=== PATIENT | female | born 1945 | race Caucasian/White ===

== ENCOUNTER 2018-06-21 22:37 | Inpatient (IN) | payer MEDICARE, BC ==
[~2018-06-21] VITALS: Ht 165.1 cm; Wt 106.8 kg
[2018-06-21] MEDS: VANCOMYCIN 1 GM in IV D5W 250 ML IV ONE (04:45)
--- NOTE | 2018-06-21 22:42 | NUR ---
Pt put on BiPaP, setting 15/5, Rate-20, Fio2 100%
--- NOTE | 2018-06-21 22:42 | NUR ---
Pt BIBRA for SOB, given albuterol and cpap enroute with minimal relief. Pt presenting with dyspnea, pale, hypotensive, tachycardic. Pt alert and follows commands. Pt put on monitor. Md at bedside for evaluation. RT and RN at bedside.
--- NOTE | 2018-06-21 22:45 | NUR ---
Dr. Bowser told to hold off on cabrera and urine, pt tachypnic.
--- NOTE | 2018-06-21 22:55 | NUR ---
Hearing Dog Trainer at bedside, labs drawn and sent to lab.
[2018-06-21] MEDS ORDERED: IV NS 0.9% 500 ML BAG IV ONE (23:00)
[2018-06-21 23:14] LABS: BASOPHILS # (AUTO) 0.2 /CMM (0.0-0.2); BASOPHILS % (AUTO) 0.3 % (0.0-2.0); EOSINOPHILS % (AUTO) 2.4 % (0.0-6.0); HEMATOCRIT 49 % (33-45); HEMOGLOBIN 15.7 g/dL (11.5-14.8); LYMPHOCYTES # (AUTO) 1.4 /CMM (0.8-4.8); LYMPHOCYTES % (AUTO) 2.3 % (20.0-44.0); MEAN CORPUSCULAR HGB CONC 32 g/dl (31.0-36.0); MEAN CORPUSCULAR VOLUME 108 fL (82-100); MONOCYTES # (AUTO) 0.3 /CMM (0.1-1.30); MONOCYTES % (AUTO) 0.5 % (2.0-12.0); NEUTROPHILS # (AUTO) 58.5 /CMM (1.8-8.9); NEUTROPHILS % (AUTO) 94.5 % (43.0-81.0); PLATELET COUNT (AUTO) 188 /CMM (150-450); RED BLOOD CELL COUNT(AUTO) 4.48 MIL/uL (4.0-5.2)
[2018-06-21] MEDS ORDERED: AMIODARONE 150 MG/3 ML VIAL IV ONE ×2 (23:15→23:40)
--- NOTE | 2018-06-21 23:20 | NUR ---
Pt placed on bear-hugger, setting medium.
--- NOTE | 2018-06-21 23:24 | NUR ---
Xray at bedside.
[2018-06-21 23:27] LABS: MAGNESIUM 1.8 mg/dL (1.8-2.4)
[2018-06-21] MEDS ORDERED: AMIODARONE 150 MG in IV D5W 100 ML IV ONE (23:30)
[2018-06-21] MEDS ORDERED: MEROPENEM 1,000 MG in IV NS 0.9% 100 ML IV ONE (23:30)
--- NOTE | 2018-06-21 23:30 | NUR ---
2320 amiodarone 150mg ivpb started;hr 170, 2323 hr 157, 2327 hr 140, 2330 hr 140
--- NOTE | 2018-06-21 23:45 | NUR ---
Branch Operations Coordinator at bedside for labs.
[2018-06-21 23:50] LABS: THYROID STIMULATING HORMONE 9.445 uIU/mL (0.358-3.74)
[2018-06-22] VITALS (31 sets, daily range): BP systolic 58–139; BP diastolic 30–73
[2018-06-22 00:02] LABS: BAND % (MANUAL) 7 % (0.0-5.0); LYMPHOCYTES % (MANUAL) 2 % (16-48); NEUTROPHILS % (MANUAL) 91 (42-76)
[2018-06-22] MEDS ORDERED: AMIODARONE 150 MG/3 ML VIAL IV ONE ×2 (00:06)
[2018-06-22 00:10] LABS: ABG BASE EXCESS -18.3 mmol/L; ABG OXYGEN SATURATION 89.4 % (92.0-98.5); ABG PCO2 26.4 mmHg (35.0-45.0); ABG PH 7.149 (7.350-7.450); ABG PO2 74.6 mmHg (75.0-100.0); COHb 0.8 % (0.5-1.5); MetHb 0.7 % (0.0-1.5); O2Hb 88.1 % (94.0-97.0)
[2018-06-22] MEDS ORDERED: AMIODARONE 900 MG in IV D5W 482 ML IV STA (00:11)
[2018-06-22 00:15] LABS: B-TYPE NATRIURETIC PEPTIDE 9354 PG/ML (0-125)
[2018-06-22 00:20] LABS: CALCIUM, SERUM 9.2 mg/dL (8.5-10.1); CARBON DIOXIDE 13 mmol/L (21-32); CHLORIDE 95 mmol/L (98-107); CREATININE 3.8 mg/dL (0.6-1.3); GLUCOSE 102 mg/dL (74-106); POTASSIUM 5.1 mmol/L (3.5-5.1); SODIUM SERUM 129 mmol/L (136-145); UREA NITROGEN, BLOOD 63 mg/dL (7-18)
[2018-06-22 00:26] LABS: ALANINE AMINOTRANSFERASE 17 U/L (12-78); ALBUMIN 2.3 g/dL (3.4-5.0); ALKALINE PHOSPHATASE 200 U/L (46-116); ASPARTATE AMINOTRANSFERASE 82 U/L (15-37); BILIRUBIN,TOTAL 5.4 mg/dL (0.2-1.0); TOTAL PROTEIN, SERUM 7.3 g/dL (6.4-8.2)
[2018-06-22 00:27] LABS: BILIRUBIN,DIRECT 4.2 mg/dL (0.0-0.2)
--- NOTE | 2018-06-22 00:30 | NUR ---
Note undone in ED - 06/22/18 at 0304 by HUMZA Pt not tolerating Bipap well, keeps pulling and wanting to take off, saying its too loud. Pt AAOx4. Pt Saturation staying in the 80s. Addendum: 06/22/18 at 0257 by HUMZA Amendment undone in ED - 06/22/18 at 0304 by HUMZA made aware.
[2018-06-22] MEDS ORDERED: AZITHROMYCIN 500 MG in IV D5W 250 ML IV STA (00:38)
--- NOTE | 2018-06-22 00:50 | NUR ---
Pt taken to CT with RN.
[2018-06-22] MEDS ORDERED: IV NS 0.9% 500 ML BAG IV ONE (01:00)
--- NOTE | 2018-06-22 01:00 | NUR ---
PT returned from CT, Pt desaturated to low 50s. Pt back on the Bipap. MD aware. No further orders recieved.
[2018-06-22] MEDS ORDERED: LISI-603 PO (01:13)
[2018-06-22] MEDS ORDERED: LEVO100T9 PO (01:13)
[2018-06-22] MEDS ORDERED: MEROPENEM 1 G VIAL IV ONE (01:14)
--- NOTE | 2018-06-22 01:30 | NUR ---
Pt not tolerating Bipap well, keeps adjusting the mask. Pt AAOx4, O2 saturations keeping in the 80s. at bedside.
--- NOTE | 2018-06-22 01:30 | NUR ---
Multiple Rns unable to obtain a second line in Pt. made aware.
--- NOTE | 2018-06-22 02:15 | NUR ---
RT at bedside for ABG.
--- NOTE | 2018-06-22 02:22 | NUR ---
Dimension Quarry Supervisor at bedside.
--- NOTE | 2018-06-22 03:01 | NUR ---
3 RT at bedside unable to obtain 2nd ABG. made aware.
[2018-06-22 03:08] LABS: ABG BASE EXCESS -19.4 mmol/L; ABG OXYGEN SATURATION 91.6 % (92.0-98.5); ABG PCO2 26.7 mmHg (35.0-45.0); ABG PH 7.118 (7.350-7.450); AaDO2 606.3 mmHg; COHb 0.4 % (0.5-1.5); MetHb 0.7 % (0.0-1.5); O2Hb 90.6 % (94.0-97.0); SITE, ABG Left Brachial
--- NOTE | 2018-06-22 03:36 | NUR ---
PT VOMITTED AND SUCTIONING IN PROGRESS BY DR CORONA. DARK BROWN EMESIS NOTED.
--- NOTE | 2018-06-22 03:36 | NUR ---
PT BEING INTUBATED BY DR. CORONA. RT X 3, ED DB2 DBA, JULIET RN, KENZIE RN/CHG, ALIS DB2 DBA AT THE BEDSIDE. TIME OUT DONE AND PT MEDICATED WITH 20MG ETOMIDATE AND 80 MG ROCC VIA 18G RAC.
--- NOTE | 2018-06-22 03:37 | NUR ---
PT INTUBATED. 23 @ THE LIP AND 7.5 ETT.
--- NOTE | 2018-06-22 03:38 | NUR ---
SUCTIONING IN PROGRESS.
--- NOTE | 2018-06-22 03:39 | NUR ---
BAGGING IN PROGRESS. + COLOR CHANGE, BILATERAL LUNGS AUSCULTATED BY DR CORONA.
--- NOTE | 2018-06-22 03:42 | NUR ---
16F NGT STARTED IN L NARE. 70CM
--- NOTE | 2018-06-22 03:42 | NUR ---
Ashley hammer in [facility] - 06/22/18 at 0400 by AYSHA 16F BIJANT STARTED IN Ally SCOTT 70CM
--- NOTE | 2018-06-22 03:42 | NUR ---
PT IS ON A VENT WITH THE FOLLOWING SETTINGS: AC 20, 500TV, FIO2 100%, PEEP 5
--- NOTE | 2018-06-22 03:44 | NUR ---
Ashley hammer in [facility] - 06/22/18 at 0401 by AYSHA 16F BIJANT STARTED IN Ally SCOTT 70CM
--- NOTE | 2018-06-22 04:07 | NUR ---
ATROPINE GIVEN IVP BY ALPESH CHUNG RAC 18G.
[2018-06-22] MEDS ORDERED: ATROPINE SULFATE INJ 1 MG/ML VIAL ONE (04:09)
[2018-06-22] MEDS ORDERED: NOREPINEPHRINE 4 MG/4 ML AMPUL IV ONE (04:09)
--- NOTE | 2018-06-22 04:12 | NUR ---
2ND DOSE OF ATROPINE GIVEN IVP VIA 18G RAC BY ALPESH CHUNG
--- NOTE | 2018-06-22 04:13 | NUR ---
CXR IN PROGRESS AT THE BEDSIDE.
--- NOTE | 2018-06-22 04:14 | NUR ---
HELD LEVOFED DRIP. PT'S BP IS 142/55, HR 69, O2 SAT 88% ON VENT.
--- NOTE | 2018-06-22 04:15 | NUR ---
CENTRAL LINE INSERTION IN PROGRESS AT THE BEDSIDE BY DR. CORONA UNDER STERILE CONDITIONS.
[2018-06-22] MEDS ORDERED: Z GUARD REMEDY 2 OZ OINT TP PRN (04:30)
[2018-06-22] MEDS ORDERED: ALBUTEROL FS 2.5 MG/3 ML VIAL.NEB NEB PRN (04:30)
[2018-06-22] MEDS ORDERED: IPRATROPIUM NEB FS 0.5 MG/2.5 ML AMPUL.NEB NEB PRN (04:30)
[2018-06-22] MEDS ORDERED: ONDANSETRON HCL/PF 4 MG/2 ML VIAL IVP PRN (04:30)
[2018-06-22] MEDS ORDERED: ACETAMINOPHEN 650 MG/SUPP.RECT RC PRN (04:30)
--- NOTE | 2018-06-22 04:35 | NUR ---
TRIPLE LUMEN CENTRAL LINE INSERTED IN RT IJ BY DR. CORONA UNDER STERILE CONDITIONS.
[2018-06-22] MEDS ORDERED: VANCOMYCIN 1 GM VIAL ONE (04:41)
[2018-06-22] MEDS: VANCOMYCIN 1 GM in IV D5W 250 ML IV ONE (04:45)
[2018-06-22] MEDS ORDERED: IV D5/ 0.9% NACL 1,000 ML IV PRN (05:00)
[2018-06-22] MEDS ORDERED: DOPamine 400MG/D5W 250ML RTU 250 ML IV ONE (05:09)
--- NOTE | 2018-06-22 05:10 | NUR ---
Noted Pt bradycardic in the 30s, ER MD at bedside. No palpable pulse, CPR started. 1 Epi given at 510.
--- NOTE | 2018-06-22 05:12 | NUR ---
Palpable pulse noted, HR remained in the 30s. CPR stopped, Dopamine drip started.
--- NOTE | 2018-06-22 05:15 | NUR ---
Ashley hammer in ED - 06/22/18 at 0543 by HUMZA 2 AMPs of D50 given to PT.
--- NOTE | 2018-06-22 05:15 | NUR ---
2 AMPs of D50 given to PT.
--- NOTE | 2018-06-22 05:15 | NUR ---
BS-37. er md made aware with orders received, 2 AMPs of D50 given per er md order
--- NOTE | 2018-06-22 05:15 | NUR ---
Ashley hammer in [facility] - 06/22/18 at 0544 by HUMZA PT blood sugar 37.
[2018-06-22] MEDS ORDERED: DEXTROSE 50%-WATER 50 ML DISP.SYRIN ONE (05:19)
[2018-06-22 05:42] LABS: ALANINE AMINOTRANSFERASE 22 U/L (12-78); ALBUMIN 1.9 g/dL (3.4-5.0); ALKALINE PHOSPHATASE 180 U/L (46-116); ASPARTATE AMINOTRANSFERASE 107 U/L (15-37); BILIRUBIN,TOTAL 4.6 mg/dL (0.2-1.0); CALCIUM, SERUM 8.6 mg/dL (8.5-10.1); CARBON DIOXIDE 11 mmol/L (21-32); CHLORIDE 98 mmol/L (98-107); CREATININE 4.1 mg/dL (0.6-1.3); POTASSIUM 4.7 mmol/L (3.5-5.1); SODIUM SERUM 131 mmol/L (136-145); TOTAL PROTEIN, SERUM 6.1 g/dL (6.4-8.2); UREA NITROGEN, BLOOD 68 mg/dL (7-18)
[2018-06-22 05:43] LABS: GLUCOSE 50 mg/dL (74-106); PHOSPHORUS 8.3 mg/dL (2.5-4.9)
[2018-06-22 05:55] LABS: ABG BASE EXCESS -30.2 mmol/L; ABG OXYGEN SATURATION 85.1 % (92.0-98.5); ABG PCO2 78.9 mmHg (35.0-45.0); ABG PH 6.637 (7.350-7.450); AaDO2 542.1 mmHg; MetHb 0.9 % (0.0-1.5); O2Hb 84.3 % (94.0-97.0); SITE, ABG Left Brachial
[2018-06-22 05:57] LABS: BASOPHILS # (AUTO) 0.1 /CMM (0.0-0.2); BASOPHILS % (AUTO) 0.1 % (0.0-2.0); HEMATOCRIT 44 % (33-45); HEMOGLOBIN 13.4 g/dL (11.5-14.8); LYMPHOCYTES % (AUTO) 3.6 % (20.0-44.0); MEAN CORPUSCULAR HGB CONC 31 g/dl (31.0-36.0); MEAN CORPUSCULAR VOLUME 115 fL (82-100); MONOCYTES # (AUTO) 0.4 /CMM (0.1-1.30); MONOCYTES % (AUTO) 0.8 % (2.0-12.0); NEUTROPHILS # (AUTO) 51.8 /CMM (1.8-8.9); NEUTROPHILS % (AUTO) 93.5 % (43.0-81.0); PLATELET COUNT (AUTO) 110 /CMM (150-450); RED BLOOD CELL COUNT(AUTO) 3.77 MIL/uL (4.0-5.2)
--- NOTE | 2018-06-22 05:58 | NUR ---
RN NOTES 05:30 AM - ADMITTED PATIENT FROM ER ORALLY INTUBATED ETT 7.5, 26 CM @ LIP CONNECTED TO VENT SETTING AC 20 TV 500 FIO2 100% PEEP 5. NON RESPONSIVE TO PAIN. COLD CLAMMY, PURPLISH EXTREMITIES. TELE MONITOR REVEALS VENTRICULAR BRADYCARDIA 45, PUPIL +5 NON REACTIVE TO LIGHT. RIGHT AND LEFT WEAK PEDAL PULSES PRESENT. INITIAL VS 139/54 HR 50 RESP 14 TEMP 97.6 . IV SITE ON RIGHT INTERNAL JUGULAR RECEIVED WITH DOPAMINE @ 20 MCK/KG/MIN AND VANCOMYCIN 1 GRM FROM ER. PT IS HEMODYNAMICALLY UNSTABLE TO MOVE. WILL CLOSELY MONITOR. 06:10 AM - REPORT TO DR HANLEY REGARDING PATIENT RECENT ABG RESULT OF Ph 6.637 PCO2 78.9, PO2 92 HCO3 8.2 , AND RECENT LAB RESULT OF PHOSPHORUS 8.6 AND WBC 55.4 WAITING FOR THE CALL BACK.
[2018-06-22 06:00] LABS: CHOLESTEROL 43 mg/dL (<200); HDL CHOLESTEROL < 10 mg/dL (40-60); LDL 24 mg/dL (0-99); TRIGLYCERIDES 124 mg/dL (30-150); WHITE BLOOD COUNT (AUTO) 55.4 K/uL (4.3-11.0)
[2018-06-22] MEDS ORDERED: PIPERACILLIN /TAZOBACTAM 2.25 G in IV D5W 50 ML IV ONE (06:00)
[2018-06-22 06:13] LABS: LIPASE 5522 U/L (73-393)
[2018-06-22 06:18] LABS: BAND % (MANUAL) 25 % (0.0-5.0); EOSINOPHILS % (MANUAL) 1 % (0-4); LYMPHOCYTES % (MANUAL) 1 % (16-48); METAMYELOCYTES % 3 % (0-0); MONOCYTES % (MANUAL) 1 % (0-11.0); NEUTROPHILS % (MANUAL) 69 (42-76)
[2018-06-22] MEDS ORDERED: AZITHROMYCIN 500 MG VIAL ONE (06:30)
[2018-06-22] MEDS ORDERED: DOPamine 400 MG/D5W 250 ML RTU PIGGYBACK IV PRN (06:30)
[2018-06-22] MEDS: DOPamine 400MG/D5W 250ML RTU 250 ML IV PRN ×2 (06:36→08:45)
[2018-06-22] MEDS ORDERED: PIPERACILLIN /TAZOBACTAM 2.25 G VIAL IV ONE (06:40)
[2018-06-22] MEDS ORDERED: NACL IV PRN (07:00)
[2018-06-22] MEDS ORDERED: D5 IV PRN (07:00)
[2018-06-22] MEDS ORDERED: SODIUM ACETATE IV PRN (07:00)
--- NOTE | 2018-06-22 07:00 | NUR ---
RN NOTES DR. HANLEY CALL BACK AND PLACED ALL THE ORDER NOTED AND ACKNOWLEDGE IV ATB STARTED ORDERED. PT SATURATION STILL HARD TO READ.
[2018-06-22] MEDS ORDERED: FEE PK DOSING 1 MIN EA MC ONE (07:15)
--- NOTE | 2018-06-22 07:30 | NUR ---
ICU/RN: Pt received, intubated, pupils fixed at 5cm, absent gag/cough reflex, weak peripheral pulses requiring doppler for Ax, L NGT to LIS no output noted. Sinus karen on monitor. Dopamine ongoing for BP titration as ordered. Will cont to monitor pt.
[2018-06-22] MEDS ORDERED: FEE EMEERGENCY 1 MIN EA MC ONE ×2 (08:26→08:44)
[2018-06-22] MEDS ORDERED: EPINEPHRINE (1:10,000) SYRINGE 1 MG/10 ML DISP.SYRIN IVP ONE (08:26)
[2018-06-22] MEDS ORDERED: DEXTROSE 50%-WATER 50 ML DISP.SYRIN IV ONE (08:26)
[2018-06-22] MEDS ORDERED: ATROPINE SULFATE 1 MG/10 ML DISP.SYRIN IV ONE ×2 (08:26→08:44)
[2018-06-22] MEDS ORDERED: ETOMIDATE 2 MG/ML VIAL IV ONE (08:44)
[2018-06-22] MEDS ORDERED: ROCURONIUM BROMIDE 50 MG/5 ML IV ONE (08:44)
[2018-06-22] MEDS ORDERED: PANTOPRAZOLE 40 MG VIAL IV SCH (09:00)
[2018-06-22] MEDS ORDERED: LEVOTHYROXINE SODIUM 100 MCG TABLET PO SCH (09:00)
--- NOTE | 2018-06-22 09:00 | NUR ---
ICU/RN: Dr Sarah rounds; updated on pt status, ABG and vent changes discussed. New orders noted and carried out.
[2018-06-22] MEDS ORDERED: PIPERACILLIN /TAZOBACTAM 3.375 G in IV D5W 50 ML IV SCH (09:30)
[2018-06-22] MEDS ORDERED: OSELTAMIVIR PHOSPHATE 75 MG CAPSULE PO SCH (09:30)
[2018-06-22] MEDS ORDERED: IV NS 0.9% 1,000 ML IV ONE (09:30)
[2018-06-22] MEDS ORDERED: LEVOFLOXACIN 750 MG /D5W 150ML 150 ML IV SCH (10:00)
--- NOTE | 2018-06-22 10:00 | NUR ---
ICU/RN: Spoke with Guillermo Morgan, , multiple times. Aware of pt's critical condition. Per , will be here soon to see pt and speak with .
[2018-06-22] MEDS ORDERED: DOPAMINE 800MG/D5W 250ML RTU PIGGYBACK IV PRN (10:30)
[2018-06-22 10:53] LABS: ABG BASE EXCESS -27.3 mmol/L; ABG OXYGEN SATURATION 90.3 % (92.0-98.5); ABG PCO2 35.9 mmHg (35.0-45.0); ABG PO2 81.7 mmHg (75.0-100.0); AaDO2 595.4 mmHg; COHb 0.4 % (0.5-1.5); MetHb 0.7 % (0.0-1.5); O2Hb 89.3 % (94.0-97.0); SITE, ABG Left Brachial; VENT MODE, BG AC 28 650 100% +5
[2018-06-22] MEDS ORDERED: DOPamine 800 MG in IV D5W 250 ML IV PRN (11:00)
[2018-06-22] MEDS ORDERED: PIPERACILLIN /TAZOBACTAM 3.375 G in IV D5W 100 ML IV SCH (11:00)
[2018-06-22] MEDS ORDERED: NOREPINEPHRINE 16 MG in IV D5W 500 ML IV PRN (12:00)
[2018-06-22] MEDS ORDERED: PIPERACILLIN /TAZOBACTAM 2.25 G in IV D5W 50 ML IV SCH (12:00)
--- NOTE | 2018-06-22 12:30 | NUR ---
ICU/RN: Guillermo , at bedside; updated on pt status - states "I don't think she'd want this. She's no longer responding, breathing well on her own, her feet are turning blue...Please stop everything." Pt assessed, no gag/cough reflex present; pupils fixed and dilated at 5cm. requesting to speak with BEN Bell regarding prognosis and plan of care. [employer] paged.
--- NOTE | 2018-06-22 12:45 | NUR ---
ICU/RN: Arabella Armenta, COLD TYPE ARTIST had lengthy conversation with regarding prognosis, "actively dying." wishes to keep "comfortable," stop meds, no compressions and terminally extubate. COLD TYPE ARTIST updated Dr Sarah regarding family request. Orders noted and carried out.
--- NOTE | 2018-06-22 12:50 | NUR ---
RT NOTE PT TERMINALLY EXTUBATED PER MD ORDER. RN AT BED SIDE. PT PLACED ON NC AT 3L. Addendum: 06/22/18 at 1254 by JOSE ONOFRE RT Amended: Links added.
[2018-06-22] MEDS ORDERED: DC PROPOFOL WHEN EXTUBATED XX PRN (13:00)
--- NOTE | 2018-06-22 13:30 | NUR ---
RN NOTES NO PALPABLE PULSES NOTED. NO RESPIRATORY EFFORT NOTED. NO RISE AND FALL OF CHEST NOTED. PT AT 1305 . PRONOUNCED BY ALPESH AGUIAR AND ALPESH FOLEY. JEZ POLO NP AWARE. AND SON AND BEDSIDE.
--- NOTE | 2018-06-22 13:45 | NUR ---
RN NOTES CALLED [facility], SPOKE TO MADSION. ALL PERTINENT INFORMATION GIVEN. REFERRAL #[id number]. WILL CALL BACK IF NEEDED MORE INFORMATION. CALLED CONSTRUCTION DRILL[employer] OFFICE, SPOKE WITH DIPESH. GIVEN ALL PERTINENT INFORMATION REGARDING PT'S CONDITION UPON ADMISSION AND CAUSE OF . PER DPIESH, NOT A CONSTRUCTION DRILLER'S CASE AND FAMILY CAN RELEASE BODY TO MORTUARY OF CHOICE. AT BEDSIDE AWARE. Addendum: 06/22/18 at 1516 by ALAINA KUHN RN Wandy BARCENAS FROM [facility] CALLED. VERIFIED ALL INFORMATION CORRECTLY. PER SWAPNA, PT NOT CANDIDATE FOR [employer]GAN DONATION. REFERENCE #[id number]
[2018-06-24] MEDS ORDERED: VANCOMYCIN 1 GM in IV D5W 250 ML IV SCH (05:00)
== END 2018-06-22 13:05 | disposition expired | DRG 871 ==
LOC: ER 22:40 → ICU 23:53
PROVIDERS: ADMIT Internal Medicine; ATTEND Internal Medicine
PROC: 5A09357 Assistance with Respiratory Ventilation, Less than 24 Consecutive Hours, Continuous Positive Airway Pressure (ICD-10-PCS; principal; 2018-06-21)
PROC: 5A1935Z Respiratory Ventilation, Less than 24 Consecutive Hours (ICD-10-PCS; 2018-06-22)
PROC: 0BH17EZ Insertion of Endotracheal Airway into Trachea, Via Natural or Artificial Opening (ICD-10-PCS; 2018-06-22)
PROC: 02HV33Z Insertion of Infusion Device into Superior Vena Cava, Percutaneous Approach (ICD-10-PCS; 2018-06-22)
PROC: B548ZZA Ultrasonography of Superior Vena Cava, Guidance (ICD-10-PCS; 2018-06-22)
DX: A41.9 Sepsis, unspecified organism (principal); R65.21 Severe sepsis with septic shock; J96.00 Acute respiratory failure, unspecified whether with hypoxia or hypercapnia; J18.9 Pneumonia, unspecified organism; N17.0 Acute kidney failure with tubular necrosis; Z66 Do not resuscitate; Z51.5 Encounter for palliative care; E87.1 Hypo-osmolality and hyponatremia; E87.4 Mixed disorder of acid-base balance; D68.9 Coagulation defect, unspecified; K76.6 Portal hypertension; K74.60 Unspecified cirrhosis of liver; E66.9 Obesity, unspecified; Z68.33 Body mass index [BMI] 33.0-33.9, adult; E03.9 Hypothyroidism, unspecified; E78.5 Hyperlipidemia, unspecified; I10 Essential (primary) hypertension; D75.89 Other specified diseases of blood and blood-forming organs
CPT/HCPCS: 36415; 36600; 71045-TC; 76705-TC; 80048-TC; 80053-TC; 80061-TC; 80076-TC; 82803-TC; 82962-TC; 83605-TC; 83690-TC; 83735-TC; 83880; 84100-TC; 84443-TC; 84484-TC; 85025-TC; 85730-TC; 87040-TC; 87081-TC; 87186-TC; 87400; 93970-TC; 94002-TC; 99082-TC; C1751; C9113; G0378; J0171; J0282; J0456; J0461; J1265; J1956; J2185; J2543; J3370; J3490; J7030; J7040; J7042; J7050; J7060